=== PATIENT | female | born 1950 | race Caucasian/White ===

== ENCOUNTER 2018-02-26 20:04 | Emergency (ER) | payer OTHER ==
[2018-02-26 20:04] VITALS: BMI 19.7
[2018-02-26 20:33] VITALS: BP 154/84; PULSE 99; RESP 16; TEMP 99.3; O2SAT 99
--- NOTE | 2018-02-26 21:29 | ED PDOC ---
History of Present Illness History of Present Illness: Chikis Brown is a 67 year old female, with no significant past medical history, who presents to the emergency department complaining of chills and suprapubic pain onset for x2 days. Patient is concerned she might have an UTI. She denies any fever, nausea, vomit, back pain or other medical complaints. PMD: None provided. HPI: Influenza Time Seen by Provider: 02/26/18 21:06 Chief Complaint: Flu-like Symptoms Chief Complaint (Provider): Chills History Per: Patient Exam Limitations: no limitations Onset/Duration Of Symptoms: Days (x2) Symptoms include: other (chills). denies: fever, vomiting, diarrhea Past Medical History Reviewed: Historical Data, Nursing Documentation, Vital Signs Vital Signs: Last Vital Signs Temp 99.3 F 02/26/18 20:30 Pulse 99 H 02/26/18 20:30 Resp 16 02/26/18 20:30 BP 154/84 H 02/26/18 20:30 Pulse Ox 99 02/26/18 20:30 - Medical History PMH: No Chronic Diseases - Surgical History Surgical History: Back Surgery - Family History Family History: States: Unknown Family Hx - Social History Current smoker - smoking cessation education provided: No Alcohol: None Drugs: Denies - Home Medications Home Medications: Ambulatory Orders Medication Instructions Recorded Ibuprofen [Motrin] 600 mg PO Q6 #20 tab 02/26/18 Phenazopyridine HCl [Pyridium] 100 mg PO TID #6 tab 02/26/18 Sulfamethoxazole/Trimethoprim 1 tab PO BID 5 Days tab 02/26/18 [Bactrim DS 800 mg-160 mg] - Allergies Allergies/Adverse Reactions: Allergies Allergy/AdvReac Type Severity Reaction Status Date / Time No Known Allergies Allergy Verified 02/26/18 20:30 Review of Systems ROS Statement: Except As Marked, All Systems Reviewed And Found Negative Constitutional: Positive for: Chills. Negative for: Fever Gastrointestinal: Positive for: Abdominal Pain (suprapubic). Negative for: Nausea, Vomiting Musculoskeletal: Negative for: Back Pain Physical Exam - Reviewed Nursing Documentation Reviewed: Yes Vital Signs Reviewed: Yes - Physical Exam Appears: Positive for: No Acute Distress Head Exam: Positive for: ATRAUMATIC, NORMAL INSPECTION, NORMOCEPHALIC Skin: Positive for: Normal Color, Warm, Dry Eye Exam: Positive for: Normal appearance, EOMI, PERRL Neck: Positive for: Painless ROM Cardiovascular/Chest: Positive for: Regular Rate, Rhythm. Negative for: Murmur Respiratory: Positive for: Normal Breath Sounds. Negative for: Respiratory Distress Gastrointestinal/Abdominal: Positive for: Tenderness (mild suprapubic) Back: Negative for: L CVA Tenderness, R CVA Tenderness Extremity: Positive for: Normal ROM (upper and lower extremities). Negative for : Deformity, Swelling Neurologic/Psych: Positive for: Alert, Oriented Medical Decision Making Medical Decision Making: Time: 21:06 Initial Impression: UTI Initial Plan: --CMP --Urine dipstick --CBC w/ differential --Motrin tab 600 mg PO --Urinalysis --Reevaluation Dip (+) blood, leuks, (-) nites, as read by AURELIO CBC with WBC 13.7 Pt temp: 99.3 medicated with Motrin PO and Bactrim DS Pt declined IV access/medications at this time Pt asking to go back to work advised to continue on medications as directed, return to ED with any concerns Scribe Attestation: Documented by Merritt Pisano, acting as a scribe for Shanika Soto PA-C Provider Scribe Attestation: All medical record entries made by the Scribe were at my direction and personally dictated by me. I have reviewed the chart and agree that the record accurately reflects my personal performance of the history, physical exam, medical decision making, and the department course for this patient. I have also personally directed, reviewed, and agree with the discharge instructions and disposition. - Laboratory Results Result Diagrams: 02/26/18 21:34 02/26/18 21:34 - ECG O2 Sat by Pulse Oximetry: 99 Disposition - Clinical Impression Clinical Impression: UTI (urinary tract infection) - Patient ED Disposition Is Patient to be Admitted: No - Disposition Disposition: Routine/Home Disposition Time: 22:11 Condition: STABLE Prescriptions: Ibuprofen [Motrin] 600 mg PO Q6 #20 tab Phenazopyridine HCl [Pyridium] 100 mg PO TID #6 tab Sulfamethoxazole/Trimethoprim [Bactrim DS 800 mg-160 mg] 1 tab PO BID 5 Days tab Instructions: Urinary Tract Infection, Adult (DC) Forms: [employer] (Maltese)
[2018-02-26 21:43] LABS: BASO # 0.1 K/uL (0.0-0.2); BASO % 0.7 % (0.0-2.0); EOS # 0.1 K/uL (0.0-0.7); EOS % 0.7 % (0.0-4.0); HEMOGLOBIN 12.5 g/dL (12.0-16.0); LYMPH # 2.1 K/uL (1.0-4.3); LYMPH % 15.5 % (20.0-40.0); MEAN CELL VOLUME 87.6 fl (81.0-99.0); MEAN CORPUSCULAR HEMOGLOBIN 28.4 pg (27.0-31.0); MEAN CORPUSCULAR HGB CONC 32.5 g/dL (33.0-37.0); MEAN PLATELET VOLUME 7.6 fl (7.2-11.7); MONO # 1.1 K/uL (0.0-0.8); MONO % 7.9 % (0.0-10.0); NEUT # 10.3 K/uL (1.8-7.0); NEUT % 75.2 % (50.0-75.0); RBC 4.38 Mil/uL (3.80-5.20); RED CELL DISTRIBUTION WIDTH 13.4 % (11.5-14.5); WHITE BLOOD COUNT 13.7 K/uL (4.8-10.8)
[2018-02-26 21:53] LABS: ALB/GLOB RATIO 1.3 (1.0-2.1); ALBUMIN 4.3 g/dL (3.5-5.0); ALT/SGPT 41 U/L (9-52); AST/SGOT 42 U/L (14-36); BLOOD UREA NITROGEN 11 mg/dl (7-17); CALCIUM 9.3 mg/dL (8.4-10.2); GFR NON-AFRICAN AMERICAN > 60
[2018-02-26 21:55] LABS: URINE BACTERIA RARE (<OCC); URINE BILIRUBIN NEGATIVE (NEGATIVE); URINE BLOOD SMALL (NEGATIVE); URINE CLARITY CLEAR (Clear); URINE COLOR STRAW (YELLOW); URINE GLUCOSE (UA) NEG (Normal); URINE LEUKOCYTE ESTERASE TRACE Leu/uL (Negative); URINE PROTEIN NEGATIVE (NEGATIVE); URINE UROBILINOGEN 0.2-1.0 mg/dL (0.2-1.0)
[2018-02-26] MEDS ORDERED: Tmp-Smz 800 mg-160 mg DS Tab PO STA (22:06)
== END 2018-02-26 22:10 | disposition home or self-care (01) ==
LOC: H.ER 20:04
DX: N39.0 Urinary tract infection, site not specified (principal)

== ENCOUNTER 2018-10-15 18:21 | Emergency (ER) | payer OTHER ==
[2018-10-15 18:21] VITALS: BMI 19.7
[2018-10-15 18:37] VITALS: BP 148/89; PULSE 85; RESP 16; TEMP 98.8; O2SAT 99
--- NOTE | 2018-10-15 19:00 | ED PDOC ---
HPI: Female Pain Time Seen by Provider: 10/15/18 18:39 Chief Complaint (Nursing): Female Genitourinary Chief Complaint (Provider): Dysuria, Frequency History Per: Patient History/Exam Limitations: no limitations Onset/Duration Of Symptoms: Days (x1 week) Additional Complaint(s): 67 year old female presents to the ED for evaluation of dysuria and frequency for the past week. Patient states she gets recurrent UTIs, last one eight months ago, and has seen multiple urologists. At home, she has been taking Cystex without relief, last dose one hour prior to arrival. Otherwise, denies fever, n ausea, vomiting, hematuria, vaginal bleeding, vaginal discharge, flank pain, and back pain. PMD: none provided Past Medical History Reviewed: Historical Data, Nursing Documentation, Vital Signs Vital Signs: Last Vital Signs Temp 98.8 F 10/15/18 18:36 Pulse 85 10/15/18 18:36 Resp 16 10/15/18 18:36 BP 148/89 10/15/18 18:36 Pulse Ox 99 10/15/18 18:36 - Medical History PMH: No Chronic Diseases - Surgical History Surgical History: Back Surgery - Family History Family History: States: Unknown Family Hx - Home Medications Home Medications: Ambulatory Orders Medication Instructions Recorded Ibuprofen [Motrin] 600 mg PO Q6 #20 tab 02/26/18 Phenazopyridine HCl [Pyridium] 100 mg PO TID #6 tab 02/26/18 Sulfamethoxazole/Trimethoprim 1 tab PO BID 5 Days tab 02/26/18 [Bactrim DS 800 mg-160 mg] Cephalexin [Keflex] 500 mg PO BID #14 capsule 03/02/18 Cephalexin [Keflex] 500 mg PO BID #14 capsule 03/02/18 Cephalexin [Keflex] 500 mg PO BID #14 capsule 03/02/18 Cefdinir [Omnicef] 300 mg PO BID #20 cap 10/15/18 - Allergies Allergies/Adverse Reactions: Allergies Allergy/AdvReac Type Severity Reaction Status Date / Time No Known Allergies Allergy Verified 02/26/18 20:30 Review of Systems ROS Statement: Except As Marked, All Systems Reviewed And Found Negative Constitutional: Negative for: Fever Gastrointestinal: Negative for: Nausea, Vomiting Genitourinary Female: Positive for: Dysuria, Frequency. Negative for: Hematuria, Vaginal Discharge, Vaginal Bleeding Musculoskeletal: Negative for: Back Pain, Other (flank pain) Physical Exam - Reviewed Nursing Documentation Reviewed: Yes Vital Signs Reviewed: Yes - Physical Exam Comments: GENERAL APPEARANCE: Patient is awake, alert, oriented x 3, in no acute distress. SKIN: Warm, dry; (-) cyanosis. EYES: (-) conjunctival injection ENMT: Mucous membranes moist. Airway patent: (-) stridor. NECK: Supple, FROM CHEST AND RESPIRATORY: (-) wheezing; (-) rales, (-) rhonchi; breath sounds equal bilaterally. HEART AND CARDIOVASCULAR: (-) irregularity ABDOMEN AND GI: Soft; (-) tenderness (-) distention (-) CVA tenderness. EXTREMITIES: (-) deformity, (-) edema. NEURO AND PSYCH: Mental status as above; (-) focal findings. Gait: steady. Speech: clear. (-) facial asymmetry - ECG O2 Sat by Pulse Oximetry: 99 (RA) Pulse Ox Interpretation: Normal Medical Decision Making Medical Decision Making: Initial Impression: dysuria, frequency, probable UTI Time: 1844 Initial Plan: --Urine culture --Urinalysis --Re-evaluation --Patient declined Pyridium stating it does not work for her 1940 U/A reviewed (+) UTI. Omnicef 300mg PO ordered as patient reports a history of resistance to Bactrim and Cipro on previous urine cultures. On re-evaluation, patient reports improvement of symptoms. On exam, patient remains AAOx3, in no acute distress. Vitals stable. Lab/Diagnostic results d/w the patient in great detail. Diagnosis of UTI d/w the patient. Based on history, exam and diagnostic results, plan will be for outpatient follow up with urology/PMD. Patient instructed to follow-up with pmd / referral provided / the clinic in 1- 2 days without fail. Advised to take medication as prescribed. Return to the emergency room at any time for any new or worsening symptoms. Patient states she fully agrees with and understands discharge instructions. States that she agrees with the plan and disposition. Verbalized and repeated discharge instructions and plan. I have given the patient opportunity to ask any isidro tional questions. Scribe Attestation: Documented by Kika Chu, acting as a scribe for Lucero Valencia PA-C. Provider Scribe Attestation: All medical record entries made by the Scribe were at my direction and personally dictated by me. I have reviewed the chart and agree that the record accurately reflects my personal performance of the history, physical exam, medical decision making, and the department course for this patient. I have also personally directed, reviewed, and agree with the discharge instructions and disposition. Disposition - Clinical Impression Clinical Impression: UTI (urinary tract infection), Dysuria - Patient ED Disposition Is Patient to be Admitted: No Counseled Patient/Family Regarding: Studies Performed, Diagnosis, Need For Followup, Rx Given - Disposition Referrals: Nathan Ashraf MD [Staff Provider] - primary, doctor [Other] Disposition: Routine/Home Disposition Time: 19:45 Condition: STABLE Additional Instructions: The emergency medical care you received today was directed at your acute symptoms. If you were prescribed any medication, please fill it and take as directed. It may take several days for your symptoms to resolve. Return to the Emergency Department if your symptoms worsen, do not improve, or if you have any other problems. Please contact your doctor in 2 days for re-evaluation and follow up / or call one of the physicians/clinics you have been referred to that are listed on the Patient Visit Information form that is included in your discharge packet. Bring any paperwork you were given at discharge with you along with any medications you are taking to your follow up visit. Our treatment cannot replace ongoing medical care by a primary care provider (PCP) outside of the emergency department. Prescriptions: Cefdinir [Omnicef] 300 mg PO BID #20 cap Instructions: Urinary Tract Infections in Adults, Dysuria, Adult (DC) Forms: [employer] (Bhutanese) Print Language: ITALIAN - POA Present On Arrival: None Results - Lab Results Lab Results: 10/15/18 19:15 Urine Color Yellow Urine Clarity Slighty-cloudy Urine pH 6.0 Ur Specific Switchback 1.011 Urine Protein Negative Urine Glucose (UA) Neg Urine Ketones Negative Urine Blood Small Urine Nitrate Negative Urine Bilirubin Negative Urine Urobilinogen 0.2-1.0 Ur Leukocyte Esterase Large Urine RBC (Auto) 6 H Urine Microscopic WBC 231 H Urine Bacteria Many H
[2018-10-15 19:30] LABS: URINE BACTERIA MANY (<OCC); URINE BILIRUBIN NEGATIVE (NEGATIVE); URINE BLOOD SMALL (NEGATIVE); URINE CLARITY SLIGHTY-CLOUDY (Clear); URINE COLOR YELLOW (YELLOW); URINE GLUCOSE (UA) NEG (NEGATIVE); URINE LEUKOCYTE ESTERASE LARGE Leu/uL (Negative); URINE PROTEIN NEGATIVE (NEGATIVE); URINE UROBILINOGEN 0.2-1.0 mg/dL (0.2-1.0)
[2018-10-15] MEDS ORDERED: Tmp-Smz 800 mg-160 mg DS Tab PO STA (19:42)
[2018-10-15] MEDS ORDERED: Cefdinir 300 MG CAP PO STA (20:00)
== END 2018-10-15 20:45 | disposition home or self-care (01) ==
LOC: H.ER 18:21
DX: N39.0 Urinary tract infection, site not specified (principal); R30.0 Dysuria